=== PATIENT | female | born 1965 ===

== ENCOUNTER 2021-05-09 00:58 | Emergency (ER) | payer BC ==
[~2021-05-09] VITALS: Ht 152.4 cm; Wt 70.0 kg
[2021-05-09 01:01] VITALS: BP 109/69
--- NOTE | 2021-05-09 01:31 | NUR ---
patient to xray
== END 2021-05-09 03:03 | disposition home or self-care (01) ==
LOC: ED 02:57
DX: S82.434A Nondisplaced oblique fracture of shaft of right fibula, initial encounter for closed fracture (principal); S82.64XA Nondisplaced fracture of lateral malleolus of right fibula, initial encounter for closed fracture; F10.120 Alcohol abuse with intoxication, uncomplicated; J45.909 Unspecified asthma, uncomplicated; F17.210 Nicotine dependence, cigarettes, uncomplicated; X58.XXXA Exposure to other specified factors, initial encounter; Y93.89 Activity, other specified; Y92.59 Other trade areas as the place of occurrence of the external cause; Y99.8 Other external cause status
CPT/HCPCS: 29515; 99283